=== PATIENT | male | born 1980 | race Caucasian/White ===

== ENCOUNTER 2017-07-20 07:28 | Emergency (ER) | payer OTHER ==
--- NOTE | 2017-07-20 08:16 | RAD ---
HISTORY: Left hand trauma, evaluate for foreign body COMPARISONS: None VIEWS: 2, Frontal and lateral views of the left hand FINDINGS: BONE DENSITY: Normal. BONES: There is no displaced fracture. JOINTS: There is no arthropathy. ALIGNMENT: There is no dislocation. SOFT TISSUES: There is a 0.5 cm radiopaque foreign body within the soft tissues of the volar aspect of the left hand OTHER FINDINGS: None. IMPRESSION: 1. 0.5 CM RADIOPAQUE FOREIGN BODY IN THE SOFT TISSUES OF THE PALM OF THE LEFT HAND. 2. NO ACUTE OSSEOUS INJURY. IF SYMPTOMS PERSIST, RECOMMEND REPEAT IMAGING.
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
== END 2017-07-20 08:35 | disposition home or self-care (01) ==
LOC: UCEAST 07:28
DX: S60.552A Superficial foreign body of left hand, initial encounter (principal); W45.8XXA Other foreign body or object entering through skin, initial encounter; Y92.9 Unspecified place or not applicable
CPT/HCPCS: 10120; 99202; G0463